=== PATIENT | female | born 1925 | race Caucasian/White ===

== ENCOUNTER → 2017-08-24 | Outpatient (CLI) | payer OTHER ==
[~2017-08-24] MED LIST: ACET325 PO; ALBU90OI6 INH; ASPI81CH PO; ASPI81EC PO; ATEN25 PO; BACL10 PO; BISA10S PR; CYCL10 PO; Cipro500 MG PO; HYDACE5 PO; HYDACE5325 PO; IRBHYD300 PO; LORA10ER PO; MECL25 PO; MOM PO; NORT10 PO; NORT25 PO; OMEP10ER PO; OMEP20ER PO; POTA10T PO; PROC5 PO; SIMV10 PO; SULTRIDS PO; Senna8.6 MG PO; TEMA15 PO; TRIA50 PO; TRIHYD253B PO
[2017-08-24 15:16] LABS: Bilirubin, Urine Neg (Neg); Blood, Urine Neg (Neg); Glucose Qualitative, Urine Neg (Neg); Ketones, Urine Neg (Neg); Leukocyte Esterase, Urine 2+ (Neg); Nitrite, Urine Neg (Neg); Protein, Urine 1+ (Neg); Specific Gravity, Urine 1.015 (1.003-1.022); Urobilinogen, Urine NORM (Normal)
[2017-08-24 15:22] LABS: Appearance, Urine Clear (Clear); Color, Urine Yellow (P-Yellow)
[2017-08-24 15:23] LABS: Amorphous Light (0-Heavy); Bacteria Mod /hpf; Red Blood Cells, Urine 0-2 /hpf (0-2); Squamous Epithelial Cells Few /hpf (Few)
== END | disposition home or self-care (01) ==
LOC: LAB 15:00
PROVIDERS: Physician Assistant
DX: N39.0 Urinary tract infection, site not specified (principal)
CPT/HCPCS: 81001; 87086